=== PATIENT | female | born 1980 | race Hispanic/Latino ===

== ENCOUNTER 2017-07-22 04:07 | Emergency (ER) | payer BC ==
[~2017-07-22 04:07] MED LIST: ASPI-988 PO
[2017-07-22 04:37] LABS: APPEARANCE,URINE Clear (CLEAR); BILIRUBIN,URINE Negative (NEGATIVE); COLOR,URINE Yellow (YELLOW); GLUCOSE, URINE (UA) Negative (NEGATIVE); KETONES,URINE Negative (NEGATIVE); LEUKOCYTE ESTERASE ,URINE Negative (NEGATIVE); NITRATE,URINE Negative (NEGATIVE); OCCULT BLOOD,URINE Negative (NEGATIVE); PH,URINE 5.5 (5.0-8.0); PROTEIN,URINE Negative (NEGATIVE)
[2017-07-22 04:42] LABS: BASOPHILS % (AUTO) 0.6 % (0.0-5.0); EOSINOPHILS % (AUTO) 1.9 % (0.0-8.0); HEMATOCRIT 39.1 % (36-48); LYMPHOCYTES % (AUTO) 49.2 % (21.0-51.0); MEAN CORPUSCULAR HEMOGLOBIN 29.3 pg (27.0-33.0); MEAN CORPUSCULAR HGB CONC 33.1 g/dL (32.0-36.0); MEAN CORPUSCULAR VOLUME 88.6 fL (79-99); MONOCYTES % (AUTO) 8.1 % (3.0-13.0); NEUTROPHILS % (AUTO) 40.2 % (40.0-77.0); PLATELET COUNT (AUTO) 265 K/uL (130-400); RED BLOOD CELL COUNT(AUTO) 4.42 MIL/uL (4.00-5.50); RED CELL DISTRIBUTION WIDTH 13.8 % (11.0-15.5); WHITE BLOOD COUNT (AUTO) 7.1 K/uL (4.8-10.8)
[2017-07-22 04:51] LABS: CREATININE 0.8 mg/dL (0.5-1.5); POTASSIUM 3.5 mmol/L (3.5-5.1)
[2017-07-22] MEDS ORDERED: METOCLOPRAMIDE 10 MG/2 ML VIAL ONE (05:36)
[2017-07-22] MEDS ORDERED: HYOSCYAMINE SULFATE 0.125 MG TAB.SUBL SL ONE (06:58)
[2017-07-22] MEDS ORDERED: DOCUSATE SODIUM 100 MG CAP PO ONE (06:58)
== END 2017-07-22 07:08 | disposition home or self-care (01) ==
LOC: EDH 04:07
DX: K59.00 Constipation, unspecified (principal); R10.2 Pelvic and perineal pain; K31.84 Gastroparesis; K21.9 Gastro-esophageal reflux disease without esophagitis; Z90.710 Acquired absence of both cervix and uterus; Z98.890 Other specified postprocedural states; Z72.0 Tobacco use
CPT/HCPCS: 36415; 80048; 81003; 85025; 96374; 99285; J2765; 74000

== ENCOUNTER 2021-05-15 18:50 | Emergency (ER) | payer BC ==
[~2021-05-15] VITALS: Ht 165.1 cm; Wt 61.2 kg
[2021-05-15] MEDS ORDERED: SOLU-MEDROL 125MG VIAL IVP ONE (19:30)
[2021-05-15] MEDS ORDERED: KETOROLAC 30MG VIAL (30MG/ML) IV ONE (19:30)
[2021-05-15] MEDS ORDERED: CEFTRIAXONE 1G VIAL IVP ONE (19:30)
[2021-05-15] MEDS ORDERED: 0.9%NACL 1000ML 1,000 ML IV ONE (19:30)
[2021-05-15 20:46] VITALS: BP 113/61
== END 2021-05-15 20:50 | disposition home or self-care (01) ==
LOC: EDH 18:50
DX: J02.9 Acute pharyngitis, unspecified (principal); E86.0 Dehydration; Z20.822 Contact with and (suspected) exposure to COVID-19; Z79.1 Long term (current) use of non-steroidal anti-inflammatories (NSAID); Z79.52 Long term (current) use of systemic steroids; Z79.82 Long term (current) use of aspirin
CPT/HCPCS: 87635; 87804 ×2; 87880; 96361; 96374; 96375; 99284; C9803; J0696; J1885; J2930; J7030